=== PATIENT | female | born 1995 | race Two or more races ===

== ENCOUNTER → 2017-01-14 | Outpatient (CLI) | payer MEDICAID | LOC: FIMAGING 09:22 | PROVIDERS: ATTEND Midwife | DX: O99.211 Obesity complicating pregnancy, first trimester (principal); O34.212 Maternal care for vertical scar from previous cesarean delivery; Z3A.11 11 weeks gestation of pregnancy ==

== ENCOUNTER → 2017-03-21 | Outpatient (CLI) | payer MEDICAID | LOC: FIMAGING 14:45 | PROVIDERS: ATTEND Midwife | DX: O99.212 Obesity complicating pregnancy, second trimester (principal); O34.219 Maternal care for unspecified type scar from previous cesarean delivery; Z3A.21 21 weeks gestation of pregnancy ==

== ENCOUNTER → 2017-04-22 | Outpatient (CLI) | payer MEDICAID | LOC: FIMAGING 12:52 | PROVIDERS: ATTEND Midwife | DX: O99.212 Obesity complicating pregnancy, second trimester (principal); Z3A.25 25 weeks gestation of pregnancy; Z98.891 History of uterine scar from previous surgery ==

== ENCOUNTER → 2017-05-30 | Outpatient (CLI) | payer OTHER, MEDICAID | LOC: FIMAGING 12:55 | PROVIDERS: ATTEND Midwife | DX: O26.03 Excessive weight gain in pregnancy, third trimester (principal); O09.293 Supervision of pregnancy with other poor reproductive or obstetric history, third trimester; Z3A.30 30 weeks gestation of pregnancy ==

== ENCOUNTER → 2017-07-01 | Outpatient (CLI) | payer BC, MEDICAID | LOC: FIMAGING 13:32 | PROVIDERS: ATTEND Midwife | DX: Z34.83 Encounter for supervision of other normal pregnancy, third trimester (principal); Z3A.35 35 weeks gestation of pregnancy ==

== ENCOUNTER → 2018-08-28 | Outpatient (CLI) | payer BC, MEDICAID | LOC: FIMAGING 07:43 ==